=== PATIENT | male | born 1985 | race Caucasian/White ===

== ENCOUNTER 2020-10-26 09:16 | Emergency (ER) | payer OTHER, SELFPAY ==
[2020-10-26 09:25] VITALS: BP 118/76; PULSE 72; RESP 16; TEMP 36.6; O2SAT 100
--- NOTE | 2020-10-26 09:38 | ED.GENADULT ---
HPI - General Adult General Chief complaint: Skin/Abscess/Foreign Body Stated complaint: rash Time Seen by Provider: 10/26/20 09:29 History of Present Illness HPI narrative: Patient is a 35-year-old male who presents ER with concerns of shingles. Patient noticed some burning and discomfort going from his back around to his mid abdomen over the last 3 days. Today he woke up and he had developed a new rash that is patchy. There are some small vesicles noted. He had chickenpox as a child. No additional infectious symptoms. No fevers chills sweats. Related Data Allergies Allergy/AdvReac Type Severity Reaction Status Date / Time No Known Allergies Allergy Unverified 10/26/20 09:29 Review of Systems Constitutional: Constitutional: Denies chills, Denies fever(s) and Denies weakness ENT: Denies nasal congestion and Denies sore throat Integumentary/Breasts: Skin/Breast: Reports pruritus, Reports erythema, Reports rash and Reports skin ulcer PMFSH Past Medical History Medical History (Updated 10/26/20 @ 09:42 by Los Mac MD) Healthy adult male Surgical History Surgical History (Updated 10/26/20 @ 09:41 by Los Mac MD) No history of previous surgery Social History Social History (Updated 10/26/20 @ 09:41 by Los Mac MD) Smoking status: Current every day smoker Exam Narrative: Exam Narrative: GENERAL: Well-appearing, well-nourished, and in no acute distress. HEAD: Normocephalic, atraumatic. EXTREMITIES: Normal range of motion. No edema. SKIN: Warm, dry, patchy shingles-like rash on the left side of the body going from the T10 level of the back around the abdomen to the umbilicus. Vesicles noted. NEURO: Alert and oriented x3. PSYCH: Normal mood and affect. Course Course Emergency Course: Discussed diagnosis and treatment plan. Discharge home. Vital Signs Vital signs: Vital Signs Temperature 97.8 F 10/26/20 09:25 Pulse Rate 72 10/26/20 09:25 Respiratory Rate 16 10/26/20 09:25 Blood Pressure 118/76 10/26/20 09:25 Pulse Oximetry 100 10/26/20 09:25 Temperature 97.8 F 10/26/20 09:25 Pulse Rate 72 10/26/20 09:25 Respiratory Rate 16 10/26/20 09:25 Blood Pressure 118/76 10/26/20 09:25 Pulse Oximetry 100 10/26/20 09:25 Medical Decision Making Vital Signs Vital Signs: Vital Signs Temperature 97.8 F 10/26/20 09:25 Pulse Rate 72 10/26/20 09:25 Respiratory Rate 16 10/26/20 09:25 Blood Pressure 118/76 10/26/20 09:25 Pulse Oximetry 100 10/26/20 09:25 Temperature 97.8 F 10/26/20 09:25 Pulse Rate 72 10/26/20 09:25 Respiratory Rate 16 10/26/20 09:25 Blood Pressure 118/76 10/26/20 09:25 Pulse Oximetry 100 10/26/20 09:25 Discharge Plan Discharge Clinical Impression: Shingles Patient Disposition: Home, Self-Care Condition: Stable Instructions: Shingles (ED) Additional Instructions: Return the ER if you have shingles like rash your face, you have fever over 100.4 ?F, you have additional concerns. Take Tylenol and ibuprofen for pain. Prescriptions: New valacyclovir [Valtrex] 1 gram tablet 1,000 mg PO Q8H Qty: 21 RF: 0 Follow-up/Referrals: BANDAR,BHARAT nAderson M.D. [Primary Care Provider] - 1 Week
== END 2020-10-26 10:00 | disposition home or self-care (01) ==
PROVIDERS: Emergency Provider Emergency Medicine; PCP Internal Medicine
DX: B02.9 Zoster without complications (principal)
CPT/HCPCS: 99283

== ENCOUNTER 2021-10-17 09:54 | Emergency (ER) | payer OTHER, SELFPAY ==
[2021-10-17 10:05] VITALS: BP 117/71; PULSE 69; RESP 16; TEMP 37.2; O2SAT 99
--- NOTE | 2021-10-17 10:29 | ED.BACK ---
HPI - Back Pain/Injury General Chief Complaint: Back Pain/Injury Stated Complaint: right side neck/back/elbow pain Time Seen by Provider: 10/17/21 10:30 Source: patient Mode of arrival: ambulatory Limitations: no limitations History of Present Illness HPI Narrative: Ion Lea is a 36 yo male with no PMH who comes to [facility] with right-sided trapezius pain from lifting and doing work and is an old weightlifting injury. Pain is in neck when he moves his head downward or looks up able to move side to side has full range of motion equal strength in all extremities Related Data Home Medications Medication Instructions Recorded Confirmed buspirone 10 mg PO DAILY 10/17/21 10/17/21 Allergies Allergy/AdvReac Type Severity Reaction Status Date / Time No Known Allergies Allergy Unverified 10/17/21 10:18 Review of Systems Review of Systems: CONSTITUTIONAL: Denies fever, chills, sweats. EYES: Denies visual changes, redness, discharge. ENT: Denies rhinorrhea, congestion, sore throat, otalgia. CARDIOVASCULAR: Denies chest pain, palpitations, edema. RESPIRATORY: Denies dyspnea, wheezing, cough GASTROINTESTINAL: Denies abdominal pain, nausea, vomiting, diarrhea. GENITOURINARY: Denies dysuria, hematuria, abnormal discharge SKIN: Denies rash or itching. NEUROLOGIC: Denies numbness, or focal weakness. PSYCHIATRIC: Denies anxiety or depression. Right upper back pain PMFSH Past Medical History Medical History Healthy adult male Surgical History Surgical History No history of previous surgery Family History Family History Other Diabetes mellitus Heart disease Social History Social History (Updated 10/17/21 @ 10:36 by Mary Sanches CNP) Smoking status: Current every day smoker Alcohol intake: current Comments At time of signature, I agree with nursing past medical, surgical, social and family history. There is no relevant family history pertinent to the presenting complaint. Exam Narrative: GENERAL: This is a well-nourished, well-developed patient, in mild distress. HEAD: normocephalic, atraumatic. EYES: Sclera clear/white. Vision is grossly intact. EARS: External ears normal,. Hearing grossly intact. NOSE: External nose normal without nasal discharge, nares without redness, no rhinorrhea. THROAT: Mucous membranes moist, NECK: Neck supple, tender with downward movement and lifts right arm in a certain direction CARDIOVASCULAR: Regular rate and rhythm without murmurs, gallops, or rubs. RESPIRATORY: Clear to auscultation. Breath sounds equal bilaterally. No wheezes, rales, or rhonchi. GASTROINTESTINAL: Abdomen soft, SKIN: warm, intact with no suspicious lesions or rash, good texture and turgor. NEURO: awake, alert, and oriented to person, place and time. There were no obvious focal neurologic abnormalities. Steady gait EXTREMITIES: Normal range of motion. BACK: Nontender pain is elicited by certain neck movements Course Course Emergency Course: Patient comes here due to aggravation of old weightlifting injury and right upper trapezius that is elicited particularly with certain neck movements are certain movements when standing Ibuprofen 800 mg and baclofen Follow-up with primary care physician if not improved Vital Signs Vital signs: Vital Signs Temperature 98.9 F 10/17/21 10:05 Pulse Rate 69 10/17/21 10:05 Respiratory Rate 16 10/17/21 10:05 Blood Pressure 117/71 10/17/21 10:05 Pulse Oximetry 99 10/17/21 10:05 Temperature 98.9 F 10/17/21 10:05 Pulse Rate 69 10/17/21 10:05 Respiratory Rate 16 10/17/21 10:05 Blood Pressure 117/71 10/17/21 10:05 Pulse Oximetry 99 10/17/21 10:05 MDM - Back Pain/Injury Differential Diagnosis Differential diagnosis: Likely lumbar radiculopathy, sciatica, th
== END 2021-10-17 10:43 | disposition home or self-care (01) ==
PROVIDERS: Emergency Provider Nurse Practitioner
DX: M54.6 Pain in thoracic spine (principal); F17.200 Nicotine dependence, unspecified, uncomplicated
CPT/HCPCS: 99213; G0463